=== PATIENT | female | born 1955 ===

== ENCOUNTER 2020-04-18 12:55 | Observation (INO) ==
[2020-04-18] MEDS ORDERED: Metoclopramide 5 MG/ML VIAL (10 mg) IV SLOW PU ONE (14:04)
[2020-04-18] MEDS: Lactated Ringers 1000 ml BAG 1,000 ML IV SCH ×3 (14:22→23:06)
[2020-04-18] MEDS ORDERED: Morphine 4 MG/ML VIAL (1 ml) IV ONE (14:25)
[2020-04-18 15:16] LABS: BUN/Creatinine Ratio 20.3 (8-20); Calcium 9.3 mg/dL (8.6-10.3); EGFR African American 95.3 (>60); EGFR Non-African American 78.8 (>60); Potassium 4.1 mmol/L (3.5-5.0)
[2020-04-18] MEDS ORDERED: Enoxaparin 40 MG/0.4 ML SYR SUBCUT SCH (17:00)
[2020-04-18 17:11] LABS: TSH Ultra Thyroid Stim Horm 5.3 mcIU/mL (0.34-5.60)
[2020-04-18] MEDS: Enoxaparin 40 MG/0.4 ML SYR SUBCUT SCH ×2 (22:00→23:06)
[2020-04-18] MEDS: Ondansetron 4 mg VIAL 2 MG/ML 2 ml VIAL IV PRN (22:53)
[2020-04-19] MEDS: Ondansetron 4 mg VIAL 2 MG/ML 2 ml VIAL IV PRN (04:40)
[2020-04-19 05:37] LABS: ABS Basophils 0.1 10^3/ul (0-0.2); ABS Eosinophils 0.1 10^3/ul (0-0.6); ABS Lymphocytes 1.9 10^3/ul (1.0-4.8); ABS Monocytes 0.6 10^3/ul (0-0.8); ABS Neutrophils 5.4 10^3/ul (1.5-7.7); Eosinophil % 1.2 %; Hematocrit 42 % (35-47); Hemoglobin 14.5 g/dL (12.0-16.0); Lymphocyte % 24.1 %; Mean Corpuscular HGB Conc 35 g/dL (31-36); Mean Corpuscular Hemoglobin 32 pg (27-31); Mean Corpuscular Volume 93 fL (80-97); Mean Platelet Volume 9.2 fL (7.4-10.4); Platelet Count 214 10^3/uL (150-450); Red Blood Count 4.51 10^6 /uL (3.70-4.87); Red Cell Distribution Width 13 % (10-15)
[2020-04-19 05:54] LABS: BUN/Creatinine Ratio 19.4 (8-20); Calcium 8.9 mg/dL (8.6-10.3); EGFR African American 98.4 (>60); EGFR Non-African American 81.3 (>60); Potassium 3.6 mmol/L (3.5-5.0)
[2020-04-19] MEDS: Butalb/Acetamin/Caff TAB 325-50-40MG PO PRN (11:01)
[2020-04-19] MEDS: Lactated Ringers 1000 ml BAG 1,000 ML IV SCH (14:32)
[2020-04-19] MEDS ORDERED: Magnesium Hydroxide LIQ 30 ML UDC PO PRN (14:38)
[2020-04-19] MEDS ORDERED: Senna TAB 8.6 mg TAB PO SCH (21:00)
[2020-04-20] MEDS: Lactated Ringers 1000 ml BAG 1,000 ML IV SCH (03:41)
[2020-04-20] MEDS: Ondansetron 4 mg VIAL 2 MG/ML 2 ml VIAL IV PRN (03:49)
[2020-04-20] MEDS: Butalb/Acetamin/Caff TAB 325-50-40MG PO PRN (05:25)
[2020-04-20 11:16] VITALS: BP 132/83
== END 2020-04-20 17:00 | disposition home or self-care (01) ==
LOC: ED 12:55 → MEDTELE 12:55
PROVIDERS: ADMIT Internal Medicine; ATTEND Internal Medicine